=== PATIENT | male | born 1960 | race Caucasian/White ===

== ENCOUNTER → 2016-12-28 | Day surgery (SDC) | payer BC, OTHER ==
[2016-12-14 16:46] VITALS: BMI 40.0
[~2016-12-28] VITALS: Ht 167.6 cm; Wt 114.1 kg
[~2016-12-28] MED LIST: AMLO-110 PO; ATOR-24 PO; BUPIVACAINE 0.5 % 5 MG/1 ML MPF 30ML VIAL ONE; CEFAZOLIN 2000 MG/60 ML D5W IV SCH; CEFAZOLIN SOD 1 GM VIAL ONE; CHOL1000 PO; FENTANYL CITRATE INJ 50 MCG/1 ML 2 ML VIAL ONE; HEPARIN SOD (PORCINE) 1000 UNIT/ML 10 ML VIAL ONE; LACTATED RINGER'S 1000ML 1,000 ML IV SCH; LEVO150T PO; LEVO175T PO; LIDOCAINE HCL 2% 2 ML VIAL (20MG/ML) ONE; LISI20TA3 PO; MAGN400T6 PO; MIDAZOLAM HCL 1 MG/ML 2ML VIAL ONE; ONDANSETRON INJ 2 MG/ML 2 ML VIAL IV STA; ONDANSETRON INJ 2 MG/ML 2 ML VIAL ONE; OXYC-57 PO; PHENYLEPHRINE HCL INJ 10 MG/ML VIAL ONE; PROPOFOL IV EMULSION 10 MG/ML 20 ML VIAL IV ONE; ROCURONIUM BROMIDE 10 MG/ML 5 ML VIAL ONE; VENL25TA2 PO
[2016-12-28 10:30] VITALS: BP 132/82; PULSE 59; TEMP 36.4; O2SAT 99; Ht 167.6 cm; Wt 114.1 kg
--- NOTE | 2016-12-28 11:35 | History & Physical Bridge Note ---
H&P Re-Evaluation Bridge Note: I have examined the patient, reviewed the History & Physical and in the interval since the performance of the History & Physical I have noted the following changes of clinical significance: No changes noted
--- NOTE | 2016-12-28 14:40 | Anesthesiology Progress Note ---
Anesthesia Progress Note Date of Service Dec 28, 2016. Progress Notes Prior to induction ,pt. w/NSR converted to bigemini w/ an effective HR of 30- 33.This spontaneously converted to SR then reconverted to bigemini w/effective HR of 30. Discussed w/ Dr Stephen. Case cancelled.Dr Stephen will arrange for cardiology consultation. Discussed problem w/ pt and .They understand and are appreciative.
--- NOTE | 2016-12-28 19:27 | CARDIOLOGY CONSULTATION ---
DATE OF CONSULTATION: 12/28/2016 REFERRING PHYSICIAN: Dr. Stephen. INDICATIONS: Ventricular ectopy, bigeminy. HISTORY OF PRESENT ILLNESS: The patient is a 56-year-old male without prior history of significant cardiac disease whose past medical history is notable for hypertension controlled, hyperlipidemia, controlled, history of obstructive sleep apnea on CPAP supplementation, hypothyroidism, chronic gastroesophageal reflux. The patient presented today to [facility] with anticipated laparoscopic cholecystectomy. However, on initial sedation with low dose of Versed was noted on telemetry to have a transient episode of bigeminy. Case was canceled and he has been placed in the holding area. He is referred now for further evaluation. He denies any history of angina, congestive heart failure, myocardial infarction. He is not aware of any tachy palpitations, syncope or near syncope. Review of records does note an episode of palpitations and evaluation for palpitations dating back to 2011 with the Holter monitor at that time demonstrating frequent ventricular ectopy and bigeminy. He has been using his medications and CPAP faithfully. Notes no acute weight loss or gain. Notes no fevers, chills or sweats. Notes no melena, hematochezia, dysuria or hematuria. Notes no orthopnea, PND or peripheral edema. Is active to about the 5-met level though relatively sedentary about his home and job, is able to climb a flight of stairs, walk across the parking lot without limitations. ALLERGIES: None. MEDICATIONS: Prior to hospitalization were notable for amlodipine 5 mg per day, atorvastatin 40 mg p.o. per day, vitamin D 2000 units q.p.m., Synthroid 175 mcg per day with representing an increased dose in the setting of hypothyroidism on December 04, lisinopril 20 mg p.o. every day, Mag-Ox 400 mg p.o. every day, and venlafaxine 25 mg q.a.m. PAST SURGICAL HISTORY: Notable for prior Kulwant fundoplication x2, abdominal herniorrhaphy repair, inguinal herniorrhaphy repair. FAMILY HISTORY: Positive for heart disease with father having suffered a myocardial infarction at age 45. SOCIAL HISTORY: The patient resides in [place]. He works a sedentary job. He is a nonsmoker. Drinks occasional alcoholic beverages. He uses no significant [id number] medications. PHYSICAL EXAMINATION: VITAL SIGNS: Heart rate 60, blood pressure is 132/82. HEENT: Normocephalic, atraumatic. NECK: Thick. There is no jugular venous distention, though heavily bearded is present. There are no carotid bruits. LUNGS: Clear. CARDIOVASCULAR: Regular, normal S1, S2. There is no murmur, gallop or rub. ABDOMEN: Soft, nontender. EXTREMITIES: Without cyanosis or clubbing. There is no peripheral edema. There are intact distal pulses. LABORATORY DATA: EKG reveals sinus bradycardia at a rate of 48, otherwise normal tracing. Laboratory studies done on 11/19/2016: BUN is 11, creatinine is 1.2. Sodium is 141, potassium is 3.8, chloride is 100, bicarbonate 29, glucose is 81, AST is 26. Cholesterol is 141 with an HDL of 44 and LDL of 73. TSH was 13.0. Hemoglobin was 14.0. IMAGING DATA: Chest x-ray done preoperatively revealed no active disease. EKG done preoperatively revealed normal sinus rhythm with normal tracing. IMPRESSION AND PLAN: A 56-year-old male without prior history of cardiac disease who presented today for a laparoscopic cholecystectomy noted to have transient bigeminy during initial sedation, the procedure was canceled. He is referred now for further evaluation. He is asymptomatic and without cardiac complaint or issues. He does have cardiac risk factors and hypertension and hyperlipidemia. Given a history of heart disease and review of outpatient records, issues are notable for treated obstructive sleep apnea, hypothyroidism and recent adjustment therapies, history of past frequent ventricular ectopy and bigeminy by Holter monitor dating back to 2011. Overall, I find the patient's current finding is likely benign. Given risk factors, we will assess further with an echocardiogram to exclude underlying structural heart disease. Given familial history, we will perform a stress echocardiography. Lab work reviewed as well as EKGs of patient. We will make arrangements for stress testing to be performed post-hospital discharge.
== END | disposition home or self-care (01) ==
LOC: C.ACU 10:15
PROVIDERS: ATTEND Surgery
DX: K81.9 Cholecystitis, unspecified (principal); Z53.09 Procedure and treatment not carried out because of other contraindication; E03.9 Hypothyroidism, unspecified; I10 Essential (primary) hypertension; G47.33 Obstructive sleep apnea (adult) (pediatric); E78.5 Hyperlipidemia, unspecified; Z79.899 Other long term (current) drug therapy; Z82.49 Family history of ischemic heart disease and other diseases of the circulatory system

== ENCOUNTER → 2017-02-01 | Day surgery (SDC) | payer BC ==
[2017-01-27 13:51] VITALS: BMI 40.0
[~2017-02-01] VITALS: Ht 167.6 cm; Wt 114.1 kg
[~2017-02-01] MED LIST changes: +ATROPINE SULFATE 0.1 MG/ML 5ML SYR IV PRN; -CEFAZOLIN 2000 MG/60 ML D5W IV SCH; +CEFAZOLIN 3000 MG/65 ML D5W IV SCH; +CISATRACURIUM BESYLATE IV SOLN 2 MG/ML 10 ML VIAL ONE; +CONRAY 60% 50 ML VIAL ONE; +DEXAMETHASONE SOD INJ 4 MG/ML VIAL ONE; +EpHEDrine SULFATE INJ 50 MG/ML AMP IV PRN; +FLOSEAL HEMOSTATIC MATRIX 10ML TOP ONE; +FLUMAZENIL 0.1 MG/1 ML 10 ML VIAL IV PRN; +GLYCOPYRROLATE INJ 0.2 MG/ML VIAL ONE; +HYDROmorphone INJ 1 MG/ML SYR IV PRN; +HYDROmorphone INJ 1 MG/ML SYR ONE; +LABETALOL HCL IV 5 MG/ML 20ML IV ONE; +LABETALOL HCL IV 5 MG/ML 20ML IV PRN; -LEVO150T PO; +MoRPHine SULFATE 2 MG/ML CARP IV PRN; +MoRPHine SULFATE 4 MG/ML 1 ML CARP\\VIAL IV PRN; +NALOXONE HCL 0.4 MG/1 ML VIAL/CARP IV PRN; +NEOSTIGMINE METHYLSULFATE 5 MG/5 ML SYR ONE; +ONDANSETRON INJ 2 MG/ML 2 ML VIAL IV PRN; -ONDANSETRON INJ 2 MG/ML 2 ML VIAL IV STA; +OXYCODONE/ACETAMINOPHEN 5-325 TAB PO PRN; -PHENYLEPHRINE HCL INJ 10 MG/ML VIAL ONE; +PROMETHAZINE HCL INJ 12.5 MG in SODIUM CHLORIDE 0.9% 50ML 50 ML IV PRN; -ROCURONIUM BROMIDE 10 MG/ML 5 ML VIAL ONE; +SODIUM CHLORIDE 0.9% 1000ML 1,000 ML IV SCH; +SUCCINYLCHOLINE CHLORIDE 20 MG/ML 10 ML VIAL IV ONE
[2017-02-01 07:53] VITALS: BP 140/88; PULSE 57; TEMP 36.6; O2SAT 98; Ht 167.6 cm; Wt 114.1 kg
--- NOTE | 2017-02-01 11:19 | [facility] Post Operative Brief Note ---
Immediate Operative Summary Operative Date February 01, 2017. Pre-Operative Diagnosis cholecystitis Post-Operative Diagnosis cholecystitis Procedure(s) Performed Laparoscopic Cholecystectomy Surgeon Dr. Awais Stephen Manager [facility] [employer] Surgeon(s) Sandra Ramsey PA-C Estimated Blood Loss 20ML Findings See dictation Specimens A. Gallbladder Drains None Anesthesia General Complication(s) None Disposition Recovery Room / PACU
--- NOTE | 2017-02-01 11:23 | Discharge Instructions ---
Discharge Instructions Date of Service February 01, 2017. Admission Reason for Admission: Cholelithiasis Discharge Discharge Diagnosis / Problem: s/p laparoscopic cholecystectomy Discharge Goals Goal(s): Decrease discomfort Activity Recommendations Activity Limitations: as noted below No heavy lifting over 10 pounds for 2 weeks No strenuous activity until cleared by surgeon No driving while taking narcotic pain medication or until you are pain free . Instructions / Follow-Up Instructions / Follow-Up You may shower in 24 hours, keep steri strips on incision for 7 days. If they fall off before hand that is fine. No submerging incisions underwater for 2 weeks Walking is encouraged to prevent blood clots Follow-up with Dr. Stephen in 2 weeks Call office at [phone] if you do not already have an appointment Current Hospital Diet Patient's current hospital diet: Discharge Diet Recommended Diet: Regular Diet Procedures Procedures Performed: Laparoscopic Cholecystectomy Pending Studies Studies pending at discharge: no Medical Emergencies . Who to Call and When: Medical Emergencies: If at any time you feel your situation is an emergency, please call 911 immediately. . Non-Emergent Contact Non-Emergency issues call your: Primary Care Provider, Surgeon Call Non-Emergent contact if: you have a fever, temperature is above 101.5, your pain is not controlled, your pain is worsening, wound has increased drainage, wound has increased redness, wound has increased pain . "Provider Documentation" section prepared by Corinne Ramsey. . VTE Core Measure Inpt VTE Proph given/why not?: SCD's [place] Drug Monitoring Program Search Results: patient reviewed within database, no issues identified
[2017-02-01 12:50] VITALS: BP 128/75; PULSE 67; TEMP 36.5; O2SAT 97
--- NOTE | 2017-02-01 12:56 | Anesthesiology Progress Note ---
Anesthesia Post Op Note Date & Time February 01, 2017 at 12:56 Vital Signs Pain Intensity: 3 Vital Signs Past 12 Hours Date Time Temp Pulse Resp B/P Pulse Ox O2 Delivery O2 Flow Rate FiO2 02/01/17 12:45 63 16 123/73 93 Nasal Cannula 2 02/01/17 12:41 36.6 62 16 120/73 94 Nasal Cannula 2 02/01/17 11:57 61 20 95 02/01/17 11:57 62 20 02/01/17 11:56 130/91 02/01/17 11:52 61 10 94 02/01/17 11:52 61 10 02/01/17 11:51 148/95 02/01/17 11:47 62 4 02/01/17 11:47 62 4 93 02/01/17 11:46 141/93 02/01/17 11:42 69 0 02/01/17 11:42 70 0 95 02/01/17 11:41 149/95 02/01/17 11:37 70 0 02/01/17 11:37 69 0 92 02/01/17 11:36 150/102 02/01/17 11:32 70 0 02/01/17 11:32 70 0 154/99 92 02/01/17 11:31 157/111 02/01/17 11:27 70 7 95 02/01/17 11:27 70 7 02/01/17 11:26 149/79 02/01/17 11:22 67 11 98 02/01/17 11:22 67 11 02/01/17 11:21 147/93 02/01/17 11:17 67 19 98 02/01/17 11:17 67 19 02/01/17 11:16 149/94 02/01/17 11:12 66 19 98 02/01/17 11:12 66 19 02/01/17 11:11 148/92 02/01/17 11:09 151/93 02/01/17 11:07 36.2 81 16 151/93 99 Mask 10 02/01/17 11:07 81 12 99 02/01/17 11:07 81 12 02/01/17 07:53 36.6 57 18 140/88 98 Room Air Notes Mental Status: alert / awake / arousable, participated in evaluation Pt Amnestic to Procedure: Yes Nausea / Vomiting: adequately controlled Pain: adequately controlled Airway Patency, RR, SpO2: stable & adequate BP & HR: stable & adequate Hydration State: stable & adequate Anesthetic Complications: no major complications apparent
[2017-02-01 13:23] VITALS: BP 126/80; PULSE 75; TEMP 36.5; O2SAT 95
[2017-02-01 13:50] VITALS: BP 149/72; PULSE 72; TEMP 36.4; O2SAT 95
--- NOTE | 2017-02-01 16:42 | OPERATIVE REPORT ---
DATE OF OPERATION: 02/01/2017 PREOPERATIVE DIAGNOSES: Cholelithiasis and chronic cholecystitis. POSTOPERATIVE DIAGNOSES: Same. PROCEDURE: Laparoscopic cholecystectomy. SURGEON: Dr. Awais Stephen. SWAHILI TEACHER: Corinne Ramsey PA-C FINDINGS: The patient had adhesions to the anterior abdominal wall towards the midline, but the right upper quadrant abdominal wall and the gallbladder liver were free of adhesion. There were no adhesions at the site of entry point in the lower abdomen on either. The gallbladder was dilated. There was 1 small and 1 large stone that were measuring at least 3 cm. The gallbladder wall was not thickened. There is no pericholecystic fluid. The cystic duct was not dilated. The visible bowel appeared normal as did the visible portion of the liver. TECHNIQUE: The patient was given a general anesthetic and the area was prepped and draped in the usual sterile fashion. Three cm below the umbilicus, a transverse incision was made, carried down through the subcutaneous tissue to the fascia, which was grasped with 2 Gretchen clamps and incised between. The peritoneum was difficult to identify and I had to enlarge the incision in the fascia. I then was able to dissect through the preperitoneal fat to the peritoneum, which was grasped and incised. The introducer was eventually able to be placed intraabdominally. The abdomen was then insufflated to a pressure of 15 mmHg with carbon dioxide. The camera was passed. The adhesions to the anterior abdominal wall were identified. There were some that were on the lateral most aspect of those adhesions that I decided to take down in order to be able to visualize the liver and gallbladder more easily. Two 5-mm introducers were placed on the right side of the abdomen. Downward traction was placed on these adhesions and they were taken off the peritoneum using sharp dissection. Once the right lateral most were taken down, it was then easy to get to the liver and to the gallbladder. The third introducer was then placed very laterally. The more medial 5-mm introducer was replaced with a 10-mm introducer. Traction was placed superiorly and laterally on the gallbladder. There were adhesions of the omentum that were taken down using blunt dissection. They peeled easily until I could identify the infundibulum. The infundibulum was then elevated and the peritoneal attachment to the liver was opened along the lateral aspect of the infundibulum and then I worked more medially, freeing the anterior surface of the infundibulum into the triangle of Calot, which was opened. That allowed better mobility of the infundibulum. I dissected the infundibulum away from the liver on the medial side to even enhance that mobility more. That allowed me to identify the cystic duct. I was then able to skeletonize the cystic duct on the lateral, medial and anterior sides and peeled them down towards the bile duct. I was able then to get behind the cystic duct and isolated 360 degrees, which also allowed me to confirm the position of the cystic duct gallbladder junction. Three clips were placed on the proximal cystic duct, one near its junction with the gallbladder and it was divided. That allowed me to elevate the infundibulum and dissect into the triangle of Calot, where a small branch of the cystic artery was identified. This was clamped twice proximally once near its junction with the gallbladder and divided. There were other lymphatic tissues lateral to that that were dissected away and the gallbladder was then peeled off the liver bed. In doing so, there was what I think was the main cystic artery, which was traveling along the posterior wall of the gallbladder between the gallbladder and the liver and then entered the gallbladder at the level of the body. This was clamped and divided. The gallbladder was then peeled off the liver bed and that dissection was completed. The gallbladder was placed into an Endobag and brought out through the lower midline introducer site below the umbilicus. I had to extract the stones in order to extract the gallbladder within the bag, but that was accomplished. That introducer was replaced. The liver was elevated. The subdiaphragmatic and subhepatic spaces were irrigated. There was a small amount of oozing from the gallbladder bed of the liver that was easily controlled. There was also some oozing from part of the dissection of the omentum away from the anterior abdominal wall that was controlled with cautery as well. There was no further bleeding. The subdiaphragmatic and subhepatic spaces were irrigated and the irrigation was removed until the return was clear. I did place FloSeal in the gallbladder bed of the liver. The gas was allowed to escape and the introducers were removed. The fascia of the lower subumbilical midline introducer site was closed with interrupted 0 PDS. The skin was anesthetized with 0.5% Marcaine and then the skin was closed with 4-0 Monocryl in either an interrupted or running subcuticular fashion. The skin was cleansed, dried, and benzoin placed. Steri-Strips applied. The estimated blood loss was 20 mL. Sponge, needle and instrument counts were correct prior to closure. The patient tolerated surgical procedure without complication and was transferred to recovery. I attest to the content of the Intraoperative Record and any orders documented therein. Any exceptio ns are noted below.
== END | disposition home or self-care (01) ==
LOC: C.ACU 06:50
PROVIDERS: ATTEND Surgery
DX: K80.10 Calculus of gallbladder with chronic cholecystitis without obstruction (principal); I10 Essential (primary) hypertension; E78.5 Hyperlipidemia, unspecified; E03.9 Hypothyroidism, unspecified; F32.9 Major depressive disorder, single episode, unspecified; G47.30 Sleep apnea, unspecified; K91.1 Postgastric surgery syndromes; Z79.899 Other long term (current) drug therapy